=== PATIENT | female | born 1985 | race Two or more races ===

== ENCOUNTER 2022-05-29 15:07 | Observation (INO) | payer MEDICAID ==
[~2022-05-29] VITALS: Ht 152.4 cm; Wt 64.4 kg
[2022-05-29 16:48] LABS: Urine Amorphous Crystal FEW /hpf (None Seen); Urine Bacteria MANY /hpf (None Seen); Urine Blood Negative /uL (Negative); Urine Mucus FEW (None Seen); Urine Specific Gravity 1.029 (1.001-1.035); Urine WBC 5 /hpf (0 - 5)
[2022-05-29 17:13] LABS: Amphetamine Screen, Urine NEGATIVE (NEGATIVE); Barbiturate Scree,Urine NEGATIVE (NEGATIVE); Benzodiazephine Screen, Urine NEGATIVE (NEGATIVE); Cannabinoid Screen, Urine NEGATIVE (NEGATIVE); Cocaine Screen, Urine NEGATIVE (NEGATIVE); Opiate Scree,Urine NEGATIVE (NEGATIVE); Phencyclidine Screen, Urine NEGATIVE (NEGATIVE)
== END 2022-05-29 18:17 | disposition home or self-care (01) ==
LOC: LDRP 15:07 → UNDOADMOB 15:07 → LDRP 15:19
PROVIDERS: ADMIT Obstetrics & Gynecology; ATTEND Obstetrics & Gynecology
DX: O99.891 Other specified diseases and conditions complicating pregnancy (principal); M54.50 Low back pain, unspecified; R10.9 Unspecified abdominal pain; O26.892 Other specified pregnancy related conditions, second trimester; N89.8 Other specified noninflammatory disorders of vagina; R10.2 Pelvic and perineal pain; O21.2 Late vomiting of pregnancy; Z3A.21 21 weeks gestation of pregnancy; Z98.891 History of uterine scar from previous surgery; Z79.899 Other long term (current) drug therapy
CPT/HCPCS: 59025; 76805; 80307; 81001; 81002; 87086; 94760; G0378

== ENCOUNTER 2022-06-25 15:27 | Observation (INO) | payer MEDICAID ==
[~2022-06-25] VITALS: Ht 152.4 cm; Wt 66.7 kg
[2022-06-25] MEDS ORDERED: PREN-96 PO (16:11)
[2022-06-25] MEDS ORDERED: NIF10C PO (16:31)
[2022-06-25] MEDS ORDERED: PROG100S VA (16:32)
== END 2022-06-25 17:15 | disposition home or self-care (01) ==
LOC: UNDOADMOB 15:27 → LDRP 15:27 → UNDODISOB 17:15
PROVIDERS: ADMIT Obstetrics & Gynecology; ATTEND Obstetrics & Gynecology
DX: O26.892 Other specified pregnancy related conditions, second trimester (principal); R10.30 Lower abdominal pain, unspecified; O99.891 Other specified diseases and conditions complicating pregnancy; M54.9 Dorsalgia, unspecified; Z3A.25 25 weeks gestation of pregnancy
CPT/HCPCS: 59025; 81002; 94760; G0378